=== PATIENT | female | born 1960 | race Caucasian/White ===

== ENCOUNTER → 2019-03-19 | Outpatient (CLI) | payer BC, MEDICARE ==
[2019-03-19 15:43] LABS: African American GFR (CKD) >90 (>60 ml/min/1.73 sqM); Blood Urea Nitrogen 21 mg/dL (7-17); Non-African American GFR(CKD) 82 (>60 ml/min/1.73 sqM)
== END | disposition home or self-care (01) ==
LOC: LABWHC1 14:47
PROVIDERS: ATTEND Physical Medicine & Rehabilitation
DX: N28.9 Disorder of kidney and ureter, unspecified (principal)
CPT/HCPCS: 36415; 82565; 84520

== ENCOUNTER → 2020-06-23 | Outpatient (CLI) | payer MEDICARE, BC ==
--- NOTE | 2020-06-23 14:19 | BD ---
EXAMINATION TYPE: Axial Bone Density DATE OF EXAM: 06/23/2020 COMPARISON: NONE CLINICAL HISTORY: Height: 63 IN Weight: 234 IN FRAX RISK QUESTIONS: Secondary Osteoporosis: 3. Menopause before 45: TOTAL HYST AGE 30 RISK FACTORS HISTORY OF: Surgery to Spine: SPINE FUSION L SPINE 2016 Active: YES Postmenopausal woman: TOTAL HYST AGE 30 MEDICATIONS: Thyroid Medications: YES Which medication: Levothyroxine How Lon MONTHS Additional Medications: LEVOTHYROXINE, ATORVASTATIN, Additional History: LYMPHOMA WITH CHEMO EXAM MEASUREMENTS: Bone mineral densitometry was performed using the [employer] System. PT HAD L SPINE FUSION 2015 Bone mineral density about the R hip (g/cm2): 0.863 Bone mineral density about the L hip (g/cm2): 0.847 T Score values are as follows: -----R Neck: -1.3 -----L Neck: -1.4 -----R Total: 0.3 -----L Total: 0.2 Bone mineral density BASELINE Bone mineral density about the R Wrist (g/cm2): 0.688 T Score values are as follows: -----Dist. R+U: 0.4 -----Prox. R+U: 0.1 -----Radius total: 0.2 Bone mineral density BASELINE IMPRESSION: Osteopenia (T Score between -2.5 and -1). There is slightly increased risk of fracture and the patient may be considered for treatment. Re-Screen 2-5 years. NOTE: T-SCORE=SD OF THE YOUNG ADULT MEAN.
--- NOTE | 2020-06-25 08:33 | MM ---
Reason for exam: screening (asymptomatic). Last mammogram was performed 2 years and 9 months ago. History: Patient is postmenopausal and history of other cancer. Family history of breast cancer in maternal aunt and breast cancer in maternal cousin. Physical Findings: A clinical breast exam by your physician is recommended on an annual basis and results should be correlated with mammographic findings. MG 3D Screening Mammo W/Cad Bilateral CC and MLO view(s) were taken. Prior study comparison: September 26, 2017, mammogram. February 19, 2016, mammogram. The breast tissue is almost entirely fat. No significant changes when compared with prior studies. ASSESSMENT: Benign, BI-RAD 2 RECOMMENDATION: Routine screening mammogram of both breasts in 1 year.
== END | disposition home or self-care (01) ==
LOC: RADBDWWP 07:59
PROVIDERS: ATTEND Family Medicine
DX: Z12.31 Encounter for screening mammogram for malignant neoplasm of breast (principal); Z13.820 Encounter for screening for osteoporosis; M85.80 Other specified disorders of bone density and structure, unspecified site
CPT/HCPCS: 77063; 77067; 77080

== ENCOUNTER → 2020-09-22 | Outpatient (CLI) | payer OTHER, MEDICARE, BC ==
--- NOTE | 2020-09-22 15:14 | CT ---
EXAMINATION TYPE: CT cervical spine wo con DATE OF EXAM: 09/22/2020 COMPARISON: None HISTORY: 60-year-old female M54.2, chronic neck pain TECHNIQUE: Contiguous axial scanning of the cervical spine without IV contrast. Coronal and sagittal reconstructions performed. CT DLP: 605 mGycm Automated exposure control for dose reduction was used. FINDINGS: No craniocervical junction abnormality, predental space widening, or prevertebral soft tissue swellin g. Some degenerative change at the C1 dens articulation noted. Stranding of the normal cervical lordosis with preserved alignment. Moderate to advanced disc/endplate degenerative change C4-C7 levels with disc osteophyte complex form ation. Multilevel uncovertebral joint and facet arthropathy especially mid to lower cervical spine. Left paracentral disc osteophyte complex at C4-C5 causes a mild spinal canal stenosis. There is promi nent artifact relating to the patient's shoulders at C5-C6 and C6-C7 but there may be more moderate s akbar canal stenoses at these levels secondary to disc osteophyte complexes. At C4-C5, severe left and mild right neural foraminal stenosis. At C5-C6, moderate to severe left and moderate right neuroforaminal stenosis. At C6-C7, moderate right and mild left neuroforaminal stenosis. IMPRESSION: 1. MODERATE SPONDYLOTIC CHANGE C4 THROUGH C7 LEVELS. MILD SPINAL CANAL STENOSIS SECONDARY TO DISC OST EOPHYTE COMPLEX AT C4-C5 AND POSSIBLY MORE MODERATE CANAL NARROWING AT C5-C6 AND C6-C7 THOUGH ARTIFAC T FROM THE PATIENT'S SHOULDERS LIMITS ASSESSMENT AT THESE LEVELS. 2. ADDITIONAL FACET AND UNCOVERTEBRAL JOINT ARTHROPATHY. THIS RESULTS IN VARIABLE NEURAL FORAMINAL ST ENOSES FROM C4 THROUGH C7 ABOVE, SEVERE ON THE LEFT AT C4-C5 AND MODERATE TO SEVERE ON THE LEFT AT C5-C6.
--- NOTE | 2020-09-22 15:19 | CT ---
EXAMINATION TYPE: CT thoracic spine wo con DATE OF EXAM: 09/22/2020 COMPARISON: None HISTORY: 60-year-old female with thoracic spine pain, M54.6, chronic back pain TECHNIQUE: Contiguous axial scanning of the thoracic spine without IV contrast. Coronal and sagittal reconstructions performed. CT DLP: 2179.9 mGycm Automated exposure control for dose reduction was used. FINDINGS: Accentuated mid to lower thoracic kyphosis with moderate to advanced degenerative disc disease and en dplate spondylosis particularly in the mid to lower thoracic spine. Vertebral body heights are preserved and alignment is maintained. No bony spinal canal stenosis identified. Assessment for focal disc herniation is limited on CT espec ially due to large patient body habitus. Scattered mild facet arthropathy. Variable mild neural foraminal narrowing in the upper thoracic spin e and also on both sides at T10-T11. Fatty matrix hemangioma within the T6 vertebral body. IMPRESSION: 1. MODERATE TO ADVANCED DEGENERATIVE DISC DISEASE AND ENDPLATE SPONDYLOSIS ESPECIALLY IN THE MID TO L OWER THORACIC SPINE WITH AN ACCENTUATED THORACIC KYPHOSIS. 2. SCATTERED MILD FACET ARTHROPATHY. VARIABLE MILD NEUROFORAMINAL NARROWING IN THE UPPER THORACIC SPI NE AND ALSO ON BOTH SIDES AT T10-T11. 3. NO VERTEBRAL COMPRESSION COLLAPSE OR MALALIGNMENT.
== END | disposition home or self-care (01) ==
LOC: RADCTMAIN 14:32
PROVIDERS: ATTEND Orthopaedic Surgery
DX: M48.02 Spinal stenosis, cervical region (principal); M48.04 Spinal stenosis, thoracic region; M51.34 Other intervertebral disc degeneration, thoracic region; M47.814 Spondylosis without myelopathy or radiculopathy, thoracic region; M47.812 Spondylosis without myelopathy or radiculopathy, cervical region; M40.204 Unspecified kyphosis, thoracic region; Z88.0 Allergy status to penicillin; Z88.1 Allergy status to other antibiotic agents; Z88.6 Allergy status to analgesic agent; Z88.8 Allergy status to other drugs, medicaments and biological substances; Z91.048 Other nonmedicinal substance allergy status
CPT/HCPCS: 72125; 72128

== ENCOUNTER → 2021-09-15 | Outpatient (CLI) | payer MEDICARE, BC ==
--- NOTE | 2021-09-15 10:18 | MM ---
Reason for exam: additional evaluation requested from prior study. Last mammogram was performed 1 year and 3 months ago. History: Patient is postmenopausal and has history of other cancer at age 48. Family history of breast cancer in maternal aunt at age 50 and breast cancer in maternal cousin at age 50. Physical Findings: Nurse did not find any significant physical abnormalities on exam. MG 3D Diag Mammo W/Cad PETE Bilateral CC and MLO view(s) were taken. Prior study comparison: June 23, 2020, bilateral MG 3d screening mammo w/cad. September 26, 2017, mammogram. There are scattered fibroglandular densities. There is no discrete abnormality including area of concern. These results were verbally communicated with the patient and result sheet given to the patient on 09/15/21. ASSESSMENT: Incomplete: need additional imaging evaluation, BI-RAD 0 RECOMMENDATION: Ultrasound of the left breast.
--- NOTE | 2021-09-15 10:19 | USB ---
Reason for exam: additional evaluation requested from abnormal screening. History: Patient is postmenopausal and has history of other cancer at age 48. Family history of breast cancer in maternal aunt at age 50 and breast cancer in maternal cousin at age 50. US Breast Limited LT Left limited breast ultrasound including focal area of concern, retroareolar and axilla demonstrates a 7 x 6 x 6mm oval, solid, hyperechoic lipoma at 1 o'clock, slightly smaller when compared to previous and a duct visualized at the posterior nipple. These results were verbally communicated with the patient and result sheet given to the patient on 09/15/21. ASSESSMENT: Benign, BI-RAD 2 RECOMMENDATION: Routine screening mammogram of both breasts in 1 year.
== END | disposition home or self-care (01) ==
LOC: RADMAMWWP 08:59
PROVIDERS: ATTEND Surgery
DX: N64.52 Nipple discharge (principal)
CPT/HCPCS: 77066; 76642; G0279; 77062

== ENCOUNTER → 2022-04-05 | Outpatient (CLI) | payer MEDICARE, BC ==
--- NOTE | 2022-04-05 10:21 | XR ---
EXAMINATION TYPE: XR chest 2V DATE OF EXAM: 04/05/2022 COMPARISON: 05/16/2016 TECHNIQUE: PA and lateral views submitted. HISTORY: Shortness of breath FINDINGS: The lungs are clear and there is no pneumothorax, pleural effusion, or focal pneumonia. Heart size mildly prominent. No overt failure. Biapical pleural thickening. Hypertrophic and degenerative change of the spine. IMPRESSION: 1. No acute process.
== END | disposition home or self-care (01) ==
LOC: RADXRYALE 09:54
PROVIDERS: ATTEND Family Medicine
DX: R06.02 Shortness of breath (principal)
CPT/HCPCS: 71046

== ENCOUNTER → 2023-05-09 | Outpatient (CLI) | payer MEDICARE, BC ==
--- NOTE | 2023-05-10 08:56 | MM ---
Reason for Exam: Screening (asymptomatic). Last mammogram was performed 1 year(s) and 8 month(s) ago. Patient History: Menarche at age 13. First Full-Term at age 23. Left ovary removed at age 39. Right ovary removed at age 39. Hysterectomy at age 39. Postmenopausal. Patient has history of breast feeding. Other cancer, age 48. Maternal cousin had breast cancer, age 50. Maternal aunt had breast cancer, age 50. Risk Values: Luisana 5 year model risk: 1.6%. NCI Lifetime model risk: 6.6%. Prior Study Comparison: 02/19/2016 Screening Mammogram, Unknown. 09/26/2017 Screening Mammogram, Unknown. 06/23/2020 Bilateral Screening Mammogram, [facility]. 09/15/2021 Bilateral Diagnostic Mammogram, [facility]. Tissue Density: There are scattered fibroglandular densities. Findings: Analyzed By CAD. Focal asymmetry left breast medial inferior aspect approximately 8.8 cm from the nipple measuring 7 mm which appears larger from prior. Right breast, There is no suspicious group of microcalcifications or new suspicious mass. Overall Assessment: Incomplete: need additional imaging evaluation, BI-RAD 0 Management: Diagnostic Mammogram of the left breast. Diagnostic Breast Ultrasound of the left breast. [facility] will attempt to contact patient to return for supplemental views and ultrasound if indicated. Patient should continue monthly self-breast exams. A clinical breast exam by your physician is recommended on an annual basis. This exam should not preclude additional follow-up of suspicious palpable abnormalities. Note on Luisana scores and lifetime risk: 1. A Luisana score greater than 3% is considered moderate risk. If this is the case, consider specialist referral to assess eligibility for a risk reducing agent. 2. If overall lifetime risk for the development of breast cancer is 20% or higher, the patient may qualify for future screening with alternating mammogram and breast MRI. Electronically signed and approved by: Kashif Martinez DO
== END | disposition home or self-care (01) ==
LOC: RADMAMWWP 07:59
PROVIDERS: ATTEND Family Medicine
DX: Z12.31 Encounter for screening mammogram for malignant neoplasm of breast (principal); Z78.0 Asymptomatic menopausal state; Z80.3 Family history of malignant neoplasm of breast
CPT/HCPCS: 77063; 77067

== ENCOUNTER → 2023-05-15 | Outpatient (CLI) | payer MEDICARE, BC ==
--- NOTE | 2023-05-15 14:19 | MM ---
Reason for Exam: Additional evaluation requested from abnormal screening. Last screening mammogram was performed less than 1 month ago. Patient History: Menarche at age 13. First Full-Term at age 23. Left ovary removed at age 39. Right ovary removed at age 39. Hysterectomy at age 39. Postmenopausal. Patient has history of breast feeding. Other cancer, age 48. Maternal cousin had breast cancer, age 50. Maternal aunt had breast cancer, age 50. Risk Values: Luisana 5 year model risk: 1.6%. NCI Lifetime model risk: 6.6%. Prior Study Comparison: 06/23/2020 Bilateral Screening Mammogram, [facility]. 09/15/2021 Bilateral Diagnostic Mammogram, [facility]. 05/09/2023 Bilateral MG 3D screening mammo w/cad, [facility]. Tissue Density: Left: The breast tissue is almost entirely fat. Findings: Analyzed By CAD. Persistent finding within the medial aspect of the left breast middle depth 8.7 cm from the nipple measuring 7 mm and is inferiorly on MLO view. Overall Assessment: Incomplete: need additional imaging evaluation, BI-RAD 0 Management: Diagnostic Breast Ultrasound of the left breast. Results were given to the patient verbally at the time of exam. Patient should continue monthly self-breast exams. A clinical breast exam by your physician is recommended on an annual basis. This exam should not preclude additional follow-up of suspicious palpable abnormalities. Note on Luisana scores and lifetime risk: 1. A Luisana score greater than 3% is considered moderate risk. If this is the case, consider specialist referral to assess eligibility for a risk reducing agent. 2. If overall lifetime risk for the development of breast cancer is 20% or higher, the patient may qualify for future screening with alternating mammogram and breast MRI. Electronically signed and approved by: Kashif Martinez DO
--- NOTE | 2023-05-15 14:44 | USB ---
Reason for Exam: Additional evaluation requested from abnormal screening. Patient History: Menarche at age 13. First Full-Term at age 23. Left ovary removed at age 39. Right ovary removed at age 39. Hysterectomy at age 39. Postmenopausal. Patient has history of breast feeding. Other cancer, age 48. Maternal cousin had breast cancer, age 50. Maternal aunt had breast cancer, age 50. Risk Values: Luisana 5 year model risk: 1.6%. NCI Lifetime model risk: 6.6%. Technique: Method: Targeted. Prior Study Comparison: 06/23/2020 Bilateral Screening Mammogram, [facility]. 09/15/2021 Bilateral Diagnostic Mammogram, [facility]. 05/09/2023 Bilateral MG 3D screening mammo w/cad, [facility]. Findings: The lower inner quadrant of the left breast and the retroareolar of the left breast were scanned. Technique utilized:US breast workup limited LT Image; Ultrasound imaging of: Area of concern, retroareolar region and axilla. New hypoechoic mass at 8:00 8 cm nipple measuring 5 x 6 mm there is antegrade parallel with some posterior acoustic shadowing. Overall Assessment: Suspicious, BI-RAD 4 Management: Ultrasound Core Biopsy of the left breast. A clinical breast exam by your physician is recommended on an annual basis and results should be correlated with mammographic findings. This exam should not preclude additional follow-up of suspicious palpable abnormalities. Results were given to the patient verbally at the time of exam. Electronically signed and approved by: Kashif Martinez DO
== END | disposition home or self-care (01) ==
LOC: RADMAMWWP 13:32
PROVIDERS: ATTEND Family Medicine
DX: R92.8 Other abnormal and inconclusive findings on diagnostic imaging of breast (principal); Z78.0 Asymptomatic menopausal state; Z80.3 Family history of malignant neoplasm of breast
CPT/HCPCS: 77065; 76642; G0279; 77061

== ENCOUNTER → 2023-05-25 | Day surgery (SDC) | payer MEDICARE, BC ==
--- NOTE | 2023-05-25 14:21 | MM ---
Reason for Exam: Post Procedure Mammogram. Last screening mammogram was performed less than 1 month ago. Patient History: Menarche at age 13. First Full-Term at age 23. Left ovary removed at age 39. Right ovary removed at age 39. Hysterectomy at age 39. Postmenopausal. Patient has history of breast feeding. Other cancer, age 48. Maternal cousin had breast cancer, age 50. Maternal aunt had breast cancer, age 50. Risk Values: Luisana 5 year model risk: 1.6%. NCI Lifetime model risk: 6.6%. Tissue Density: Left: There are scattered fibroglandular densities. Overall Assessment: Known biopsy proven malignancy, BI-RAD 6 Management: Post Mammogram for Jeffrey Placement Electronically signed and approved by: Kashif Martinez DO
--- NOTE | 2023-05-30 15:20 | USB ---
Risk Values: Luisana 5 year model risk: 1.6%. NCI Lifetime model risk: 6.6%. Prior Study Comparison: 09/15/2021 Bilateral Diagnostic Mammogram, [facility]. 05/09/2023 Bilateral MG 3D screening mammo w/cad, [facility]. 05/15/2023 Left MG 3D work up w/cad LT, [facility]. 05/15/2023 Left US breast workup limited , [facility]. Pathology Description: Location: 8 o'clock. Marker Left Behind. Needle Type: Mammotome Cores: 4 Skin Nicks: 1 Gauge: 13 The procedure of ultrasound guided core biopsy was explained to the patient. Benefits, alternatives, and risks were discussed. An informed consent was then obtained. The patient was placed in supine positioning for imaging and for the procedure. The overlying skin was prepped and draped in usual sterile fashion. Lidocaine was used as anesthetic into the skin and subcutaneous tissue up to area of concern in the left breast. A sundeep was made with surgical scalpel. Under ultrasound guidance, a 12-gauge vacuum assisted biopsy and 14-gauge biopsy gun gun device was used to obtain 5 core samples. Following this, a Burdett coil biopsy clip was left in lesion. The patient tolerated the procedure well without any immediate complication. The patient was kept in the radiology department for short stay after the procedure and then discharged home in stable condition. Postprocedure mammogram: The patient was transferred to mammography for physician ordered post procedure mammogram for clip placement verification. Impression: Successful, uncomplicated ultrasound guided core biopsy of area of concern in the left breast, full pathology results to follow. Pathology Results: Result: Malignant, Invasive ductal carcinoma. LEFT BREAST, 8:00, ULTRASOUND GUIDED NEEDLE CORE BIOPSY: Invasive well-differentiated ductal carcinoma (Grade 1). See Surgical Pathology Cancer Case Summary. Overall Assessment: Malignant Management: Surgical Consultation of the left breast. Electronically signed and approved by: Kashif Martinez DO
== END ==
LOC: RADUSWWP 12:37
PROVIDERS: ATTEND Surgery
DX: C50.912 Malignant neoplasm of unspecified site of left female breast (principal); Z17.0 Estrogen receptor positive status [ER+]
CPT/HCPCS: 88305; 88342; 88341; 77065; 19083; A4648

== ENCOUNTER → 2023-06-16 | Outpatient (CLI) | payer MEDICARE, BC ==
--- NOTE | 2023-06-16 14:50 | P.GSHP ---
History of Present Illness H&P Date: 06/16/23 Chief Complaint: Left breast invasive ductal carcinoma Patient is a 62-year-old white female seen in consultation for Dr. Cruz regarding a left breast invasive ductal carcinoma. She underwent a bilateral screening mammogram on which was felt to be incomplete and left breast ultrasound and diagnostic mammograms were recommended. Left breast ultrasound was performed on which revealed a 5 x 6 mm lesion in the 8 o'clock position. This was felt to be suspicious BIRADS 4. On [id number] she underwent an ultrasound-guided core biopsy which revealed an invasive ductal grade 1 ER positive RI positive HER-2/justice negative cancer. The patient does not feel any lumps masses or nodules of concern in either breast. This was found on a routine screening mammogram. She has never had any surgery on her breast. She does not have any recent nipple discharge or skin changes. She has not had any recent trauma or infection in the breast. Approximately 2 years ago she did have some left nipple discharge which was yellow in color and diagnostic workup was negative at that time. The patient is a survivor from lymphoma which she had 14 years ago. This was treated with RCHOPP chemotherapy she was stage III. She is in complete remission at this time. She is followed by Dr. Lai. She had two basal cells removed from her face. Caffeine: 2 cups decaff/day nicotine: none chocolate: weekly BCP: none Family history: Paternal aunt: Breast cancer, colon cancer Maternal cousin: Breast cancer twin sister: kidney cancer brother: leukemia Hormonal history: Menarche:13 , breast fed: yes, age at first : 23 menopause: hysterectomy complete at 39, used a hormone patch for 6 months Surgical history: Total abdominal hysterectomy Cholecystectomy Lower spinal fusion Bilateral carpal tunnel Tonsillectomy Cervical biopsy diagnosing lymphoma Medical history: HTN high cholesterol hypothyroid Social History: nicotine: none alcohol: none drugs: none - Constitutional Constitutional: Denies chills, Denies fever - EENT Eyes: denies blurred vision, denies pain Ears: deny: decreased hearing, tinnitus Ears, nose, mouth and throat: Denies headache, Denies sore throat - Breasts Breasts: bilateral: as per HPI - Cardiovascular Cardiovascular: Reports shortness of breath, Denies chest pain - Respiratory Respiratory: Denies cough, Denies 7 - Gastrointestinal Gastrointestinal: Denies abdominal pain, Denies diarrhea, Denies nausea, Denies vomiting - Genitourinary (Female) Genitourinary: Denies dysuria, Denies hematuria - Menstruation Menstruation: Reports postmenopausal - Musculoskeletal Musculoskeletal: Denies myalgias - Integumentary Integumentary: Denies pruritus, Denies rash - Neurological Neurological: Denies numbness, Denies weakness - Psychiatric Psychiatric: Denies anxiety, Denies depression - Endocrine Endocrine: Reports weight change, Denies fatigue - Hematologic/Lymphatic Comment: none - Allergic/Immunologic Allergic/Immunologic: Reports as per HPI Past Medical History Past Medical History: Cancer, GERD/Reflux, Hyperlipidemia, Musculoskeletal Disorder, Osteoarthritis (OA) Additional Past Medical History / Comment(s): HX OF BASAL CELL CANCER & LYMPHOMA WITH CHEMO 2009., BACK PAIN. History of Any Multi-Drug Resistant Organisms: None Reported Past Surgical History: Back Surgery, Cholecystectomy, Hysterectomy, Orthopedic Surgery, Tonsillectomy Additional Past Surgical History / Comment(s): 06/15/16 posterior lateral decompression fusion transforaminal lumbar interbody fusion L4-5 and L5-S1. Other surgical hx: TUMOR ON EAR, HEMMORRHOIDECTOMY, PETE CARPAL TUNNEL, Past Anesthesia/Blood Transfusion Reactions: Previous Problems w/ Anesthesia Additional Past Anesthesia/Blood Transfusion Reaction / Comment(s): AFTER HYSTERECTOMY SHE COULN'T BREATHE WHEN SHE WAS WAKING UP AND SHE BECAME VERY ANXIOUS. Past Psychological History: No Psychological Hx Reported Past Alcohol Use History: Rare Past Drug Use History: None Reported - Past Family History Brother(s) Family Medical History: Cancer Additional Family Medical History / Comment(s): PROSTATE CA Sister(s) Family Medical History: Cancer Additional Family Medical History / Comment(s): TWIN SISTER HAD KIDNEY CANCER Medications and Allergies Home Medications Medication Instructions Recorded Confirmed Type Levothyroxine Sodium [Synthroid] 75 mcg PO DAILY 05/16/23 05/16/23 History Losartan Potassium 50 mg PO DAILY 05/16/23 05/16/23 History Meloxicam [Mobic] 15 mg PO DAILY 05/16/23 05/16/23 History Rosuvastatin [Crestor] 20 mg PO DAILY 05/16/23 05/16/23 History Allergies Allergy/AdvReac Type Severity Reaction Status Date / Time Penicillins Allergy Severe Rash/Hives Verified 05/16/23 13:10 , Skin on face peeled iodine Allergy Unknown Rash/Hives Verified 05/16/23 13:10 miconazole Allergy Unknown Blisters Verified 05/16/23 13:10 [From Neosporin AF] shellfish derived [Shellfish] Allergy Unknown Hives , Verified 05/16/23 13:10 Swelling diazepam [From Valium] AdvReac Unknown Chills, Verified 05/16/23 13:10 Shaking Surgical - Exam - General no distress - Eyes normal ocular movement - ENT no hearing loss - Neck trachea midline - Respiratory normal respiratory effort, clear to auscultation - Cardiovascular Rhythm: regular Heart Sounds: normal: S1, S2 - Abdomen Abdomen: soft, non tender, no guarding, no rigid, no rebound - Integumentary normal turgor - Neurologic no disoriented, no combative - Musculoskeletal normal gait - Psychiatric oriented to time, oriented to person, oriented to place, speech is normal, memory intact Breast Exam: BRA: 42D Inspection: Bilateral grade 3 ptosis Right breast: Multi-positional exam fibrocystic changes no dominant masses or nodules of concern Right axilla: No adenopathy of concern Left breast: Multi-positional exam fibrocystic changes no dominant masses or nodules of concern no evidence of any infection or hematoma at biopsy site Left axilla: No adenopathy of concern Results Personally reviewed mammogram and ultrasound Assessment and Plan Assessment: Impression: Left breast stage IA invasive ductal carcinoma Fibrocystic breast changes Plan: Presentation of case at tumor board CC: DR. Jang
[2023-06-16 15:16] VITALS: BP 154/91; PULSE 79; RESP 18; TEMP 98.2
== END ==
LOC: WWCWWP 13:48
PROVIDERS: ATTEND Surgery
DX: N60.12 Diffuse cystic mastopathy of left breast (principal); E03.9 Hypothyroidism, unspecified; E78.00 Pure hypercholesterolemia, unspecified; I10 Essential (primary) hypertension; K21.9 Gastro-esophageal reflux disease without esophagitis; M19.90 Unspecified osteoarthritis, unspecified site; Z79.890 Hormone replacement therapy; Z85.828 Personal history of other malignant neoplasm of skin; Z88.0 Allergy status to penicillin; Z88.3 Allergy status to other anti-infective agents; Z85.72 Personal history of non-Hodgkin lymphomas; Z80.3 Family history of malignant neoplasm of breast; Z91.013 Allergy to seafood; Z88.8 Allergy status to other drugs, medicaments and biological substances; Z79.899 Other long term (current) drug therapy

== ENCOUNTER 2023-07-18 11:45 | Day surgery (SDC) | payer MEDICARE, BC ==
[2023-07-13 12:39] VITALS: BMI 42.5
--- NOTE | 2023-07-13 17:15 | P.PN ---
Subjective Progress Note Date: 07/13/23 History of Present Illness H&P Date: 07-13-23 Chief Complaint: Left breast invasive ductal carcinoma Patient is a 62-year-old white female seen in consultation for Dr. Cruz regarding a left breast invasive ductal carcinoma. She underwent a bilateral screening mammogram on which was felt to be incomplete and left breast ultrasound and diagnostic mammograms were recommended. Left breast ultrasound was performed on which revealed a 5 x 6 mm lesion in the 8 o'clock position. This was felt to be suspicious BIRADS 4. On [id number] she underwent an ultrasound-guided core biopsy which revealed an invasive ductal grade 1 ER positive MT positive HER-2/justice negative cancer. The patient does not feel any lumps masses or nodules of concern in either breast. This was found on a routine screening mammogram. She has never had any surgery on her breast. She does not have any recent nipple discharge or skin changes. She has not had any recent trauma or infection in the breast. Approximately 2 years ago she did have some left nipple discharge which was yellow in color and diagnostic workup was negative at that time. The patient is a survivor from lymphoma which she had 14 years ago. This was treated with RCHOPP chemotherapy she was stage III. She is in complete remission at this time. She is followed by Dr. Lai. She had two basal cells removed from her face. CAse presented at tumor board on 06-20-23: recommend left breast needle localization lumpectomy, with sentinel node biopsy The patient was given the option of genetic testing and at this time she does not mind doing the genetic testing but states no matter the results of that she would still want to have a lumpectomy rather than a mastectomy Caffeine: 2 cups decaff/day nicotine: none chocolate: weekly BCP: none Family history: Paternal aunt: Breast cancer, colon cancer Maternal cousin: Breast cancer twin sister: kidney cancer brother: leukemia Hormonal history: Menarche:13 , breast fed: yes, age at first : 23 menopause: hysterectomy complete at 39, used a hormone patch for 6 months Surgical history: Total abdominal hysterectomy Cholecystectomy Lower spinal fusion Bilateral carpal tunnel Tonsillectomy Cervical biopsy diagnosing lymphoma Medical history: HTN high cholesterol hypothyroid history of lymphoma followed by Dr. Lai Social History: nicotine: none alcohol: none drugs: none - Constitutional Constitutional: Denies chills, Denies fever - EENT Eyes: denies blurred vision, denies pain Ears: deny: decreased hearing, tinnitus Ears, nose, mouth and throat: Denies headache, Denies sore throat - Breasts Breasts: bilateral: as per HPI - Cardiovascular Cardiovascular: Reports shortness of breath, Denies chest pain - Respiratory Respiratory: Denies cough - Gastrointestinal Gastrointestinal: Denies abdominal pain, Denies diarrhea, Denies nausea, Denies vomiting - Genitourinary (Female) Genitourinary: Denies dysuria, Denies hematuria - Menstruation Menstruation: Reports postmenopausal - Musculoskeletal Musculoskeletal: Denies myalgias - Integumentary Integumentary: Denies pruritus, Denies rash - Neurological Neurological: Denies numbness, Denies weakness - Psychiatric Psychiatric: Denies anxiety, Denies depression - Endocrine Endocrine: Reports weight change, Denies fatigue - Hematologic/Lymphatic Comment: none - Allergic/Immunologic Allergic/Immunologic: Reports as per HPI Past Medical History Past Medical History: Cancer, GERD/Reflux, Hyperlipidemia, Musculoskeletal Disorder, Osteoarthritis (OA) Additional Past Medical History / Comment(s): HX OF BASAL CELL CANCER & LYMPHOMA WITH CHEMO 2009., BACK PAIN. History of Any Multi-Drug Resistant Organisms: None Reported Past Surgical History: Back Surgery, Cholecystectomy, Hysterectomy, Orthopedic Surgery, Tonsillectomy Additional Past Surgical History / Comment(s): 06/15/16 posterior lateral decompression fusion transforaminal lumbar interbody fusion L4-5 and L5-S1. Other surgical hx: TUMOR ON EAR, HEMMORRHOIDECTOMY, PETE CARPAL TUNNEL, Past Anesthesia/Blood Transfusion Reactions: Previous Problems w/ Anesthesia Additional Past Anesthesia/Blood Transfusion Reaction / Comment(s): AFTER HYSTERECTOMY SHE COULN'T BREATHE WHEN SHE WAS WAKING UP AND SHE BECAME VERY ANXIOUS. Past Psychological History: No Psychological Hx Reported Past Alcohol Use History: Rare Past Drug Use History: None Reported - Past Family History Brother(s) Family Medical History: Cancer Additional Family Medical History / Comment(s): PROSTATE CA Sister(s) Family Medical History: Cancer Additional Family Medical History / Comment(s): TWIN SISTER HAD KIDNEY CANCER Medications and Allergies Home Medications Medication Instructions Recorded Confirmed Type Levothyroxine Sodium [Synthroid] 75 mcg PO DAILY 05/16/23 05/16/23 History Losartan Potassium 50 mg PO DAILY 05/16/23 05/16/23 History Meloxicam [Mobic] 15 mg PO DAILY 05/16/23 05/16/23 History Rosuvastatin [Crestor] 20 mg PO DAILY 05/16/23 05/16/23 History Allergies Allergy/AdvReac Type Severity Reaction Status Date / Time Penicillins Allergy Severe Rash/Hives Verified 05/16/23 13:10 , Skin on face peeled iodine Allergy Unknown Rash/Hives Verified 05/16/23 13:10 miconazole Allergy Unknown Blisters Verified 05/16/23 13:10 [From Neosporin AF] shellfish derived [Shellfish] Allergy Unknown Hives , Verified 05/16/23 13:10 Swelling diazepam [From Valium] AdvReac Unknown Chills, Verified 05/16/23 13:10 Shaking Objective - Vital Signs Vital signs: Intake & Output 07/12/23 07/13/23 07/13/23 18:59 06:59 18:59 Weight 108.862 kg - Constitutional General appearance: Present: cooperative - EENT Eyes: Present: EOMI ENT: Present: hearing grossly normal - Neck Neck: Present: normal ROM - Respiratory Respiratory: bilateral: CTA - Cardiovascular Heart sounds: normal: S1, S2 - Integumentary Integumentary: Present: normal turgor - Musculoskeletal Musculoskeletal: Present: gait normal - Psychiatric Psychiatric: Present: A&O x's 3, appropriate affect, intact judgment & insight - Additional findings Additional findings: Breast Exam: BRA: 42D Inspection: Bilateral grade 3 ptosis Right breast: Multi-positional exam fibrocystic changes no dominant masses or nodules of concern Right axilla: No adenopathy of concern Left breast: Multi-positional exam fibrocystic changes no dominant masses or nodules of concern no evidence of any infection or hematoma at biopsy site Left axilla: No adenopathy of concern Assessment and Plan Assessment: Impression: Left breast stage IA invasive ductal carcinoma Fibrocystic breast changes Plan: Presentation of case at tumor board n 11-14-23 Left breast needle localization and lumpectomy, left sentinel node injection, left sentinel node biopsy, possible left axillary node dissection, possible left onco- plastic tissue transfer This and benefits of the procedure were discussed with the patient. Risks include but are not limited to bleeding, infection, reaction to the anesthetic. She understands and wishes to proceed. Additionally the possibility of lymphedema, decreased sensation to the inner arm, possible injury to the thoracodorsal or long thoracic nerves were discussed. The possibility of injecting methylene blue and the fact that there could cause some tissue necrosis was discussed. The patient understands and wishes to proceed. CC: DR. Jang
[~2023-07-18 11:45] MED LIST: HEPARIN SODIUM,PORCINE/PF 5,000 UNIT/0.5 ML SYRINGE SQ PRN
[2023-07-18] MEDS ORDERED: droPERidol 5 MG/2 ML VIAL IVP ONE (12:00)
[2023-07-18] MEDS ORDERED: LACTATED RINGERS 1,000 ML IV SCH (12:00)
[2023-07-18] MEDS ORDERED: LIDOCAINE 1% (10MG/ML) FOR IV START INTRADERMA PRN (12:00)
[2023-07-18] MEDS ORDERED: DEXAMETHASONE SOD PHOSPHATE 4 MG/ML 1 ML VIAL IV ONE (12:00)
[2023-07-18] MEDS ORDERED: ONDANSETRON 4 MG/2 ML VIAL IVP ONE (12:00)
[2023-07-18] MEDS ORDERED: ALPRAZolam 0.5 MG TAB ONE (12:23)
[2023-07-18] MEDS ORDERED: ALPRAZolam 0.5 MG TAB PO ONE (12:27)
[2023-07-18] MEDS ORDERED: LIDOCAINE 1% INJ 10MG/ML (20 ML MDV) SQ ONE (13:12)
--- NOTE | 2023-07-18 14:02 | P.NAPBC ---
NAPBC Queries - NAPBC Queries Was patient's case review presented at [facility] tumor board? If no, comment.: Yes Was patient's pathology reviewed at [facility]? If no, comment.: Yes Was breast conservation surgery offered? If no, comment.: Yes Was sentinel node biopsy offered? If no, comment.: Yes Was diagnosis confirmed by percutaneous core biopsy? If no, comment.: Yes Is patient mastectomy patient?: No Was a preop referral to reconstructive surgeon offered?: No Clinical Stage: stage 1 left breast invasive ductal cancer [id number]
[2023-07-18] MEDS ORDERED: SUCCINYLCHOLINE CHLORIDE 200 MG/10 ML VIAL IV ONE (14:14)
[2023-07-18] MEDS ORDERED: ePHEDrine 50 MG/ML 1 ML VIAL ONE (14:14)
[2023-07-18] MEDS ORDERED: fentaNYL (PF) 50 MCG/ML 2 ML AMP ONE (14:14)
[2023-07-18] MEDS ORDERED: LIDOCAINE 1% INJ 10MG/ML (20 ML MDV) ONE (14:14)
[2023-07-18] MEDS ORDERED: diphenhydrAMINE 50 MG/ML 1 ML VIAL ONE (14:14)
[2023-07-18] MEDS ORDERED: PROPOFOL 10 MG/ML 20 ML VIAL IV ONE (14:14)
[2023-07-18] MEDS ORDERED: METHYLENE BLUE 50 MG/10 ML AMPUL INJ ONE (14:44)
--- NOTE | 2023-07-18 16:08 | P.OP ---
Date of Procedure: 07/18/23 Preoperative Diagnosis: Invasive ductal carcinoma left breast Postoperative Diagnosis: Same Procedure(s) Performed: Needle localization excisional lumpectomy, lymphatic mapping, sentinel node biopsy Anesthesia: NAYE Surgeon: Lorie Johns Estimated Blood Loss (ml): 10 IV fluids (ml): 700 Pathology: other ([place] node left axilla, breast tissue) Condition: stable Disposition: same day Indications for Procedure: Biopsy-proven left breast invasive ductal carcinoma Operative Findings: Dense breast tissue Description of Procedure: The patient was seen first in the radiology department. Localization of the area of concern was performed in the left breast. Periareolar radioactive tracer was injected. The patient was brought up to the operative suite. Following induction of anesthesia the neoprobe was used to interrogate the axilla. Minimal radioactivity was identified. Therefore 5 mL of half drink methylene blue was injected into the periareolar area. The breast was massaged. The left breast and axilla were then prepped and draped in a sterile fashion. The area of the axilla was approached initially. An incision was made in. Down into the axillary tissue. Using the neoprobe there was noted to be an area of increased activity deep in the axilla. Additionally 2 blue lymph nodes were identified. One of these nodes was radioactive. This area was excised using the Harmonic scalpel. After assured that hemostasis was attained the wound was well irrigated. The 10 second count on the first lymph node was 562, the background count was 17. No other blue or radioactive lymph nodes were identified. The deep tissues were closed using 3-0 Vicryl suture. This was followed by closure of the subcutaneous tissue with 3-0 Vicryl suture. The skin was closed with 4-0 subcuticular Monocryl. The area of the breast was approached. Incision was made and carried to the shaft of the needle. This was grasped with an Allis clamp. The surrounding tissue was excised. The area of excision was approximately 5 cm x 3 cm. Additional tissue was taken inferiorly. The specimens were painted for orientation. Radiograph of specimen revealed the area of concern as well as the clip were removed. Anteriorly dissection was directly under the skin and posterior dissection was on to the muscle. After we were assured that hemostasis was attained titanium clips were placed. The tissues were brought together using 3- 0 Vicryl suture. 3-0 Vicryl subcutaneous suture was placed. 4-0 Monocryl subcuticular suture was placed. Surgical glue was placed. The patient tolerated the procedure in stable condition. All instrument and sponge counts were correct at the end of the case.
[2023-07-18 16:31] VITALS: TEMP 97
[2023-07-18] MEDS: fentaNYL (PF) 50 MCG/ML 2 ML AMP IV PRN ×2 (16:46→16:59)
[2023-07-18] MEDS ORDERED: HYDROcodone/APAP 5-325MG 1 EACH TAB ONE (17:11)
[2023-07-18] MEDS ORDERED: LACTATED RINGERS 1,000 ML IV ONE (17:20)
[2023-07-18 17:21] VITALS: RESP 18
[2023-07-18] MEDS ORDERED: HYDROcodone/APAP 5-325MG 1 EACH TAB PO ONE (17:27)
[2023-07-18 17:44] VITALS: BP 123/68; PULSE 81
--- NOTE | 2023-07-19 07:55 | NM ---
EXAMINATION TYPE: NM sentinel node injection DATE OF EXAM: 07/18/2023 COMPARISON: NONE INDICATION: Abnormal mammogram. Informed consent was obtained. A timeout was performed. The area around the left nipple was cleansed with alcohol. In a single dose, a total of 485 uCi Marlin hnetium 99m Tilmanocept was injected. The patient tolerated the procedure very well. IMPRESSION: 1. Successful injection for sentinel node evaluation.
--- NOTE | 2023-07-28 10:17 | MM ---
Pathology Description: The needle localization procedure with wire placement for surgical excision was explained to the patient. Benefits, alternatives, and risks were discussed. An informed consent was then obtained. A timeout was performed. The overlying skin was prepped in usual sterile fashion. Lidocaine was used as anesthetic into the skin and subcutaneous tissue up to the level of area of concern. A 9 cm needle was used. It was placed using a medial left approach under mammographic guidance. Subsequent 90 degrees mammogram show the needle to be in satisfactory position relative to the targeted area. The wire was placed and the needle was withdrawn. The wire was fixed to patient's skin. Images were reviewed with the surgeon. The patient tolerated the procedure well without any immediate complication. The patient was kept in the radiology department for short stay after the procedure and then taken to surgery for surgical excision. Specimen: Biopsy marker and wire are identified in specimen mammogram. Impression: 1. Successful needle localization with wire placement and surgical excision of biopsy marker. Pathology Results: Result: Malignant, Invasive ductal carcinoma. A. LEFT BREAST, LUMPECTOMY: Invasive well differentiated ductal carcinoma, Grade 1 (see surgical pathology cancer case summary and comment). 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 All margins negative for in situ or invasive carcinoma. B. LEFT SENTINEL LYMPH NODE, DISSECTION: One sentinel lymph node positive for focus of macrometastatic carcinoma (see comment for confirmatory immunostain details). Focus of metastatic carcinoma measures slightly greater than 2 mm. C. BLUE LEFT LYMPH NODE, DISSECTION: One lymph node, negative for metastatic carcinoma. D. NEW INFERIOR MARGIN, EXCISION: Benign breast tissue and new inferior margin. Overall Assessment: Malignant Management: Surgical Consultation of the left breast. Electronically signed and approved by: Octaviano Garza D.O. Radiologis
== END 2023-07-18 18:05 | disposition home or self-care (01) ==
LOC: OR 11:45
PROVIDERS: ATTEND Surgery
DX: C50.912 Malignant neoplasm of unspecified site of left female breast (principal); Z17.0 Estrogen receptor positive status [ER+]; Z51.11 Encounter for antineoplastic chemotherapy; N60.19 Diffuse cystic mastopathy of unspecified breast; E03.9 Hypothyroidism, unspecified; E78.00 Pure hypercholesterolemia, unspecified; I10 Essential (primary) hypertension; K21.9 Gastro-esophageal reflux disease without esophagitis; M19.90 Unspecified osteoarthritis, unspecified site; Z79.890 Hormone replacement therapy; Z79.1 Long term (current) use of non-steroidal anti-inflammatories (NSAID); Z80.3 Family history of malignant neoplasm of breast; Z85.72 Personal history of non-Hodgkin lymphomas; Z85.828 Personal history of other malignant neoplasm of skin; Z88.0 Allergy status to penicillin; Z88.3 Allergy status to other anti-infective agents; Z79.899 Other long term (current) drug therapy
CPT/HCPCS: 19301; 38525; 38900; 88305; 88342; 88307; 88341; 76098; 19281; 38792; C1819; A9520; J0330; J1200; J1100; J0690; J2405; J2001; J3010; J2704; Q9968; J1644

== ENCOUNTER → 2023-07-27 | Outpatient (CLI) | payer MEDICARE, BC ==
--- NOTE | 2023-07-27 13:25 | P.PN ---
Progress Note - Text Progress Note Date: 07/27/23 Thuy is a 62 year old female sataus post left breast lumpectomy and SNB on 07-18-23. The margins were all (-), the tumor was 8 mm. Two nodes were removed and 1 had macroscopic disease. She tolerated the procedure without difficulty. Examination: Lungs: Clear Heart: Regular rate and rhythm Incision: Axilla and breast clean and dry no evidence of infection no evidence of hematoma or seroma Impression: Patient doing well postoperatively Plan: Follow-up medical oncology Follow-up radiation oncology Follow-up. 4 months I have given the patient a copy of her pathology report. We have discussed the results of the pathology report. And answered all questions. CC: DR. Estrada
[2023-07-27 13:27] VITALS: BP 125/77; PULSE 73; RESP 18; TEMP 98.3
== END ==
LOC: WWCWWP 12:44
PROVIDERS: ATTEND Surgery
DX: N63.20 Unspecified lump in the left breast, unspecified quadrant (principal); Z85.3 Personal history of malignant neoplasm of breast; Z88.0 Allergy status to penicillin; Z88.8 Allergy status to other drugs, medicaments and biological substances; Z91.030 Bee allergy status; Z88.5 Allergy status to narcotic agent

== ENCOUNTER → 2023-12-01 | Outpatient (CLI) | payer MEDICARE, BC ==
--- NOTE | 2023-12-01 12:20 | P.PN ---
Subjective Progress Note Date: 12/01/23 Principal diagnosis: left breast invasive ductal cancer 2022 History of Present Illness H&P Date: 12-01-23 Chief Complaint: Left breast invasive ductal carcinoma [id number]+1 Patient is a 62-year-old white female seen in consultation for Dr. Cruz regarding a left breast invasive ductal carcinoma. She underwent a bilateral screening mammogram on which was felt to be incomplete and le ft breast ultrasound and diagnostic mammograms were recommended. Left breast ultrasound was performed on which revealed a 5 x 6 mm lesion in the 8 o'clock position. This was felt to be suspicious BIRADS 4. On [id number] she underwent an ultrasound-guided core biopsy which revealed an invasive ductal grade 1 ER positive MS positive HER-2/justice negative cancer. The patient does not feel any lumps masses or nodules of concern in either breast. This was found on a routine screening mammogram. She has never had any surgery on her breast. She does not have any recent nipple discharge or skin changes. She has not had any recent trauma or infection in the breast. Approximately 2 years ago she did have some left nipple discharge which was yellow in color and diagnostic workup was negative at that time. The patient is a survivor from lymphoma which she had 14 years ago. This was treated with RCHOPP chemotherapy she was stage III. She is in complete remission at this time. She is followed by Dr. Lai. She had two basal cells removed from her face. case presented at tumor board 06-20-23 genetic testing : VUS left breast lumpectomy and SNB on 07-18-23 all margins(-), two nodes removed, 1 had macroscopic disease note medical oncology 08-14-23 reviewed planned to have adjuvant chemotherapy; just finished 5th course; note radiation oncology reviewed 09-04-23; to be done after the chemotherapy She is not complaining of any new lumps masses or nodules of concern Caffeine: 2 cups decaff/day nicotine: none chocolate: weekly BCP: none Family history: Paternal aunt: Breast cancer, colon cancer Maternal cousin: Breast cancer twin sister: kidney cancer brother: leukemia Hormonal history: Menarche:13 , breast fed: yes, age at first : 23 menopause: hysterectomy complete at 39, used a hormone patch for 6 months Surgical history: Total abdominal hysterectomy Cholecystectomy Lower spinal fusion Bilateral carpal tunnel Tonsillectomy Cervical biopsy diagnosing lymphoma Medical history: HTN high cholesterol hypothyroid Social History: nicotine: none alcohol: none drugs: none - Constitutional Constitutional: Denies chills, Denies fever - EENT Eyes: denies blurred vision, denies pain Ears: deny: decreased hearing, tinnitus Ears, nose, mouth and throat: Denies headache, Denies sore throat - Breasts Breasts: bilateral: as per HPI - Cardiovascular Cardiovascular: Reports shortness of breath, Denies chest pain - Respiratory Respiratory: Denies cough - Gastrointestinal Gastrointestinal: Denies abdominal pain, Denies diarrhea, Denies nausea, Denies vomiting - Genitourinary (Female) Genitourinary: Denies dysuria, Denies hematuria - Menstruation Menstruation: Reports postmenopausal - Musculoskeletal Musculoskeletal: Denies myalgias - Integumentary Integumentary: Denies pruritus, Denies rash - Neurological Neurological: Denies numbness, Denies weakness - Psychiatric Psychiatric: Denies anxiety, Denies depression - Endocrine Endocrine: Reports weight change, Denies fatigue - Hematologic/Lymphatic Comment: none - Allergic/Immunologic Allergic/Immunologic: Reports as per HPI Past Medical History Past Medical History: Cancer, GERD/Reflux, Hyperlipidemia, Musculoskeletal Disorder, Osteoarthritis (OA) Additional Past Medical History / Comment(s): HX OF BASAL CELL CANCER & LYMPHOMA WITH CHEMO 2009., BACK PAIN. History of Any Multi-Drug Resistant Organisms: None Reported Past Surgical History: Back Surgery, Cholecystectomy, Hysterectomy, Orthopedic Surgery, Tonsillectomy Additional Past Surgical History / Comment(s): 06/15/16 posterior lateral decompression fusion transforaminal lumbar interbody fusion L4-5 and L5-S1. Other surgical hx: TUMOR ON EAR, HEMMORRHOIDECTOMY, PETE CARPAL TUNNEL, Past Anesthesia/Blood Transfusion Reactions: Previous Problems w/ Anesthesia Additional Past Anesthesia/Blood Transfusion Reaction / Comment(s): AFTER HYSTERECTOMY SHE COULN'T BREATHE WHEN SHE WAS WAKING UP AND SHE BECAME VERY ANXIOUS. Past Psychological History: No Psychological Hx Reported Past Alcohol Use History: Rare Past Drug Use History: None Reported - Past Family History Brother(s) Family Medical History: Cancer Additional Family Medical History / Comment(s): PROSTATE CA Sister(s) Family Medical History: Cancer Additional Family Medical History / Comment(s): TWIN SISTER HAD KIDNEY CANCER Medications and Allergies Home Medications Medication Instructions Recorded Confirmed Type Levothyroxine Sodium [Synthroid] 75 mcg PO DAILY 05/16/23 05/16/23 History Losartan Potassium 50 mg PO DAILY 05/16/23 05/16/23 History Meloxicam [Mobic] 15 mg PO DAILY 05/16/23 05/16/23 History Rosuvastatin [Crestor] 20 mg PO DAILY 05/16/23 05/16/23 History Allergies Allergy/AdvReac Type Severity Reaction Status Date / Time Penicillins Allergy Severe Rash/Hives Verified 05/16/23 13:10 , Skin on face peeled iodine Allergy Unknown Rash/Hives Verified 05/16/23 13:10 miconazole Allergy Unknown Blisters Verified 05/16/23 13:10 [From Neosporin AF] shellfish derived [Shellfish] Allergy Unknown Hives , Verified 05/16/23 13:10 Swelling diazepam [From Valium] AdvReac Unknown Chills, Verified 05/16/23 13:10 Shaking Objective - Constitutional General appearance: Present: cooperative - EENT Eyes: Present: EOMI ENT: Present: hearing grossly normal - Neck Neck: Present: normal ROM - Respiratory Respiratory: bilateral: CTA - Cardiovascular Heart sounds: normal: S1, S2 - Integumentary Integumentary: Present: normal turgor - Musculoskeletal Musculoskeletal: Present: gait normal - Psychiatric Psychiatric: Present: A&O x's 3, appropriate affect, intact judgment & insight - Additional findings Additional findings: Breast Exam: BRA: 42D Inspection: Bilateral grade 3 ptosis Right breast: Multi-positional exam fibrocystic changes no dominant masses or nodules of concern Right axilla: No adenopathy of concern Left breast: Multi-positional exam fibrocystic changes no dominant masses or nodules of concern, post surgical changes Left axilla: No adenopathy of concern Assessment and Plan Assessment: Impression: Left breast stage IA invasive ductal carcinoma Fibrocystic breast changes completing chemotherapy will follow up with radiation therapy Plan: follow up in 4 months mammogram in May 2024 with appointment at that time follow up medical Oncology Follow radiation oncology Follow-up here sooner any questions or concerns CC: DR. Jang
[2023-12-01 12:45] VITALS: BP 145/81; PULSE 72; RESP 17; TEMP 97.8
== END ==
LOC: WWCWWP 11:56
PROVIDERS: ATTEND Surgery
DX: Z12.31 Encounter for screening mammogram for malignant neoplasm of breast (principal); C50.912 Malignant neoplasm of unspecified site of left female breast; N60.11 Diffuse cystic mastopathy of right breast; N60.12 Diffuse cystic mastopathy of left breast; R92.8 Other abnormal and inconclusive findings on diagnostic imaging of breast; Z17.0 Estrogen receptor positive status [ER+]; Z80.3 Family history of malignant neoplasm of breast; Z88.0 Allergy status to penicillin; Z88.8 Allergy status to other drugs, medicaments and biological substances; Z91.013 Allergy to seafood; Z85.72 Personal history of non-Hodgkin lymphomas; Z88.3 Allergy status to other anti-infective agents; Z91.041 Radiographic dye allergy status; Z88.5 Allergy status to narcotic agent

== ENCOUNTER → 2024-05-13 | Outpatient (CLI) | payer MEDICARE, BC ==
--- NOTE | 2024-05-13 14:14 | MM ---
Reason for Exam: Follow-up at short interval from prior study. Last screening mammogram was performed 12 month(s) ago. Patient History: Menarche at age 13. First Full-Term at age 23. Left ovary removed at age 39. Right ovary removed at age 39. Hysterectomy at age 39. Postmenopausal. Patient has history of breast feeding. Other cancer, age 48. Breast cancer, left, age 62. Breast cancer, left, age 62. 07/18/2023, Lumpectomy on the Left side. 07/18/2023, Malignant MG pre op needle loc LT on the left side. 05/25/2023, Malignant US biopsy breast VAD LT on the left side. Maternal cousin had breast cancer, age 50. Maternal aunt had breast cancer, age 50. Tissue Density: There are scattered areas of fibroglandular density. Findings: Analyzed By CAD. Stopped changes of left-sided lumpectomy and radiation therapy. No evidence for recurrent mass or microcalcifications. No mass within the right breast. Overall Assessment: Benign, BI-RAD 2 Management: Diagnostic Mammogram of both breasts in 1 year. . Results were given to the patient verbally at the time of exam. Patient should continue monthly self-breast exams. A clinical breast exam by your physician is recommended on an annual basis. This exam should not preclude additional follow-up of suspicious palpable abnormalities. Note on Luisana scores and lifetime risk: 1. A Luisana score greater than 3% is considered moderate risk. If this is the case, consider specialist referral to assess eligibility for a risk reducing agent. 2. If overall lifetime risk for the development of breast cancer is 20% or higher, the patient may qualify for future screening with alternating mammogram and breast MRI. [facility], , 05/13/2024 2:10 PM. Electronically signed and approved by: Francisco Ochoa M.D. Radiologis
== END | disposition home or self-care (01) ==
LOC: RADMAMWWP 13:32
PROVIDERS: ATTEND Surgery
DX: Z85.3 Personal history of malignant neoplasm of breast
CPT/HCPCS: 77062; 77066

== ENCOUNTER → 2024-05-17 | Outpatient (CLI) | payer MEDICARE, BC ==
--- NOTE | 2024-05-17 11:06 | P.PN ---
Subjective Progress Note Date: 05/17/24 05-16-24 Principal diagnosis: left breast invasive ductal cancer 2022 History of Present Illness H&P Date: 05-16-24 Chief Complaint: Left breast invasive ductal carcinoma [id number]+1 Patient is a 63-year-old white female seen initially in consultation for Dr. Cruz regarding a left breast invasive ductal carcinoma. She underwent a bilateral screening mammogram on which was felt to be incomplete and left breast ultrasound and diagnostic mammograms were recommended. Left breast ultrasound was performed on which revealed a 5 x 6 mm lesion in the 8 o'clock position. This was felt to be suspicious BIRADS 4. On [id number] she underwent an ultrasound-guided core biopsy which revealed an invasive ductal grade 1 ER positive [place] positive HER-2/justice negative cancer. The patient does not feel any lumps masses or nodules of concern in either breast. This was found on a routine screening mammogram. She had never had any surgery on her breast. She did not have any recent nipple discharge or skin changes. She had not had any recent trauma or infection in the breast. Approximately 2 years prior she did have some left nipple discharge which was yellow in color and diagnostic workup was negative at that time. The patient is a survivor from lymphoma which she had 15 years ago. This was treated with RCHOPP chemotherapy she was stage III. She is in complete remission at this time. She is followed by Dr. Lai. She had two basal cells removed from her face. case presented at tumor board 06-20-23 genetic testing : VUS left breast lumpectomy and SNB on 07-18-23 all margins(-), two nodes removed, 1 had macroscopic disease note medical oncology 12-13-23 adjuvant chemotherapy note radiation oncology reviewed 12-27-23; com[leted radiation on January 2024 Bilateral mammogram 05-13-2024 BI-RADS 2 The patient does not feel any new lumps masses or nodules of concern. She was taking hormone Annestrazole took it for 80 days and then stopped, therapy but had joint pain and palpations and stopped the medication Caffeine: 2 cups decaff/day nicotine: none chocolate: weekly BCP: none Family history: Paternal aunt: Breast cancer, colon cancer Maternal cousin: Breast cancer twin sister: kidney cancer brother: leukemia Hormonal history: Menarche:13 , breast fed: yes, age at first : 23 menopause: hysterectomy complete at 39, used a hormone patch for 6 months Surgical history: Total abdominal hysterectomy Cholecystectomy Lower spinal fusion Bilateral carpal tunnel Tonsillectomy Cervical biopsy diagnosing lymphoma Medical history: HTN high cholesterol hypothyroid Social History: nicotine: none alcohol: none drugs: none - Constitutional Constitutional: Denies chills, Denies fever - EENT Eyes: denies blurred vision, denies pain Ears: deny: decreased hearing, tinnitus Ears, nose, mouth and throat: Denies headache, Denies sore throat - Breasts Breasts: bilateral: as per HPI - Cardiovascular Cardiovascular: Reports shortness of breath, Denies chest pain - Respiratory Respiratory: Denies cough - Gastrointestinal Gastrointestinal: Denies abdominal pain, Denies diarrhea, Denies nausea, Denies vomiting - Genitourinary (Female) Genitourinary: Denies dysuria, Denies hematuria - Menstruation Menstruation: Reports postmenopausal - Musculoskeletal Musculoskeletal: Denies myalgias - Integumentary Integumentary: Denies pruritus, Denies rash - Neurological Neurological: Denies numbness, Denies weakness - Psychiatric Psychiatric: Denies anxiety, Denies depression - Endocrine Endocrine: Reports weight change, Denies fatigue - Hematologic/Lymphatic Comment: none - Allergic/Immunologic Allergic/Immunologic: Reports as per HPI Past Medical History Past Medical History: Cancer, GERD/Reflux, Hyperlipidemia, Musculoskeletal Disorder, Osteoarthritis (OA) Additional Past Medical History / Comment(s): HX OF BASAL CELL CANCER & LYMPHOMA WITH CHEMO 2009., BACK PAIN. History of Any Multi-Drug Resistant Organisms: None Reported Past Surgical History: Back Surgery, Cholecystectomy, Hysterectomy, Orthopedic Surgery, Tonsillectomy Additional Past Surgical History / Comment(s): 06/15/16 posterior lateral decompression fusion transforaminal lumbar interbody fusion L4-5 and L5-S1. Other surgical hx: TUMOR ON EAR, HEMMORRHOIDECTOMY, PETE CARPAL TUNNEL, Past Anesthesia/Blood Transfusion Reactions: Previous Problems w/ Anesthesia Additional Past Anesthesia/Blood Transfusion Reaction / Comment(s): AFTER HYSTERECTOMY SHE COULN'T BREATHE WHEN SHE WAS WAKING UP AND SHE BECAME VERY ANXIOUS. Past Psychological History: No Psychological Hx Reported Past Alcohol Use History: Rare Past Drug Use History: None Reported - Past Family History Brother(s) Family Medical History: Cancer Additional Family Medical History / Comment(s): PROSTATE CA Sister(s) Family Medical History: Cancer Additional Family Medical History / Comment(s): TWIN SISTER HAD KIDNEY CANCER Medications and Allergies Home Medications Medication Instructions Recorded Confirmed Type Levothyroxine Sodium [Synthroid] 75 mcg PO DAILY 05/16/23 05/16/23 History Losartan Potassium 50 mg PO DAILY 05/16/23 05/16/23 History Meloxicam [Mobic] 15 mg PO DAILY 05/16/23 05/16/23 History Rosuvastatin [Crestor] 20 mg PO DAILY 05/16/23 05/16/23 History Allergies Allergy/AdvReac Type Severity Reaction Status Date / Time Penicillins Allergy Severe Rash/Hives Verified 05/16/23 13:10 , Skin on face peeled iodine Allergy Unknown Rash/Hives Verified 05/16/23 13:10 miconazole Allergy Unknown Blisters Verified 05/16/23 13:10 [From Neosporin AF] shellfish derived [Shellfish] Allergy Unknown Hives , Verified 05/16/23 13:10 Swelling diazepam [From Valium] AdvReac Unknown Chills, Verified 05/16/23 13:10 Shaking Objective - Constitutional General appearance: Present: cooperative - EENT Eyes: Present: EOMI ENT: Present: hearing grossly normal - Neck Neck: Present: normal ROM - Respiratory Respiratory: bilateral: CTA - Cardiovascular Heart sounds: normal: S1, S2 - Integumentary Integumentary: Present: normal turgor - Musculoskeletal Musculoskeletal: Present: gait normal - Psychiatric Psychiatric: Present: A&O x's 3, appropriate affect, intact judgment & insight - Additional findings Additional findings: Breast Exam: BRA: 42D Inspection: Bilateral grade 3 ptosis Right breast: Multi-positional exam fibrocystic changes no dominant masses or nodules of concern Right axilla: No adenopathy of concern Left breast: Multi-positional exam fibrocystic changes no dominant masses or nodules of concern, post surgical and radiation changes Left axilla: No adenopathy of concern fungal infection under the left breast Assessment and Plan Assessment: Impression: Left breast stage IA invasive ductal carcinoma Fibrocystic breast changes mammogram 05-13-24 BIRAD 2 repeat 1 year fungal infection under the left breast uses lotrimin spray and this works well for her Plan: follow up in 6 months mammogram in May 2025 with appointment at that time follow up medical Oncology Follow radiation oncology Follow-up here sooner any questions or concerns CC: DR. Jang
[2024-05-17 11:17] VITALS: BP 166/96; PULSE 77; RESP 17; TEMP 97.7
== END ==
LOC: WWCWWP 08:59
PROVIDERS: ATTEND Surgery

== ENCOUNTER → 2024-11-28 | Outpatient (CLI) | payer MEDICARE, BC ==
[2024-11-28 15:06] VITALS: BP 144/83; PULSE 84; RESP 17; TEMP 97.7
--- NOTE | 2024-11-28 15:18 | P.PN ---
Subjective Progress Note Date: 11/28/24 11-28-24 Principal diagnosis: left breast invasive ductal cancer 2022 History of Present Illness H&P Date: 11-28-24 Chief Complaint: Left breast invasive ductal carcinoma [id number]- Patient is a 63-year-old white female seen initially in consultation for Dr. Cruz regarding a left breast invasive ductal carcinoma. She underwent a bilateral screening mammogram on which was felt to be incomplete and left breast ultrasound and diagnostic mammograms were recommended. Left breast ultrasound was performed on which revealed a 5 x 6 mm lesion in the 8 o'clock position. This was felt to be suspicious BIRADS 4. On [id number] she underwent an ultrasound-guided core biopsy which revealed an invasive ductal grade 1 ER positive [place] positive HER-2/justcie negative cancer. The patient does not feel any lumps masses or nodules of concern in either breast. This was found on a routine screening mammogram. She had never had any surgery on her breast. She did not have any recent nipple discharge or skin changes. She had not had any recent trauma or infection in the breast. Approximately 2 years prior she did have some left nipple discharge which was yellow in color and diagnostic workup was negative at that time. The patient is a survivor from lymphoma which she had 15 years ago. This was treated with RCHOPx6 chemotherapy she was stage III, 2007. She is in complete remission at this time. She is followed by Dr. Lai. She had two basal cells removed from her face. case presented at tumor board 06-20-23 genetic testing : VUS left breast lumpectomy and SNB on 07-18-23 all margins(-), two nodes removed, 1 had macroscopic disease note medical oncology 12-13-23 adjuvant chemotherapy note radiation oncology reviewed 09-04-24; completed radiation on January 2024 Bilateral mammogram 05-13-2024 BI-RADS 2 The patient does not feel any new lumps masses or nodules of concern. She was taking hormone Anastrazole took it for 80 days and then stopped, therapy but had joint pain and palpations and stopped the medication; she is now on exmestane she is tolerating this better She was seen by physical therapy for lymphedema for her left arm and breast and had decreased swelling Caffeine: 2 cups decaff/day nicotine: none chocolate: weekly BCP: none Family history: Paternal aunt: Breast cancer, colon cancer Maternal cousin: Breast cancer twin sister: kidney cancer brother: leukemia Hormonal history: Menarche:13 , breast fed: yes, age at first : 23 menopause: hysterectomy complete at 39, used a hormone patch for 6 months Surgical history: Total abdominal hysterectomy Cholecystectomy Lower spinal fusion Bilateral carpal tunnel Tonsillectomy Cervical biopsy diagnosing lymphoma Medical history: HTN high cholesterol hypothyroid Social History: nicotine: none alcohol: none drugs: none - Constitutional Constitutional: Denies chills, Denies fever - EENT Eyes: denies blurred vision, denies pain Ears: deny: decreased hearing, tinnitus Ears, nose, mouth and throat: Denies headache, Denies sore throat - Breasts Breasts: bilateral: as per HPI - Cardiovascular Cardiovascular: Reports shortness of breath, Denies chest pain - Respiratory Respiratory: Denies cough - Gastrointestinal Gastrointestinal: Denies abdominal pain, Denies diarrhea, Denies nausea, Denies vomiting - Genitourinary (Female) Genitourinary: Denies dysuria, Denies hematuria - Menstruation Menstruation: Reports postmenopausal - Musculoskeletal Musculoskeletal: Denies myalgias - Integumentary Integumentary: Denies pruritus, Denies rash - Neurological Neurological: Denies numbness, Denies weakness - Psychiatric Psychiatric: Denies anxiety, Denies depression - Endocrine Endocrine: Reports weight change, Denies fatigue - Hematologic/Lymphatic Comment: none - Allergic/Immunologic Allergic/Immunologic: Reports as per HPI Past Medical History Past Medical History: Cancer, GERD/Reflux, Hyperlipidemia, Musculoskeletal Disorder, Osteoarthritis (OA) Additional Past Medical History / Comment(s): HX OF BASAL CELL CANCER & LYMPHOMA WITH CHEMO 2009., BACK PAIN. History of Any Multi-Drug Resistant Organisms: None Reported Past Surgical History: Back Surgery, Cholecystectomy, Hysterectomy, Orthopedic Surgery, Tonsillectomy Additional Past Surgical History / Comment(s): 06/15/16 posterior lateral decompression fusion transforaminal lumbar interbody fusion L4-5 and L5-S1. Other surgical hx: TUMOR ON EAR, HEMMORRHOIDECTOMY, PETE CARPAL TUNNEL, Past Anesthesia/Blood Transfusion Reactions: Previous Problems w/ Anesthesia Additional Past Anesthesia/Blood Transfusion Reaction / Comment(s): AFTER HYSTERECTOMY SHE COULN'T BREATHE WHEN SHE WAS WAKING UP AND SHE BECAME VERY ANXIOUS. Past Psychological History: No Psychological Hx Reported Past Alcohol Use History: Rare Past Drug Use History: None Reported - Past Family History Brother(s) Family Medical History: Cancer Additional Family Medical History / Comment(s): PROSTATE CA Sister(s) Family Medical History: Cancer Additional Family Medical History / Comment(s): TWIN SISTER HAD KIDNEY CANCER Medications and Allergies Home Medications Medication Instructions Recorded Confirmed Type Levothyroxine Sodium [Synthroid] 75 mcg PO DAILY 05/16/23 05/16/23 History Losartan Potassium 50 mg PO DAILY 05/16/23 05/16/23 History Meloxicam [Mobic] 15 mg PO DAILY 05/16/23 05/16/23 History Rosuvastatin [Crestor] 20 mg PO DAILY 05/16/23 05/16/23 History Allergies Allergy/AdvReac Type Severity Reaction Status Date / Time Penicillins Allergy Severe Rash/Hives Verified 05/16/23 13:10 , Skin on face peeled iodine Allergy Unknown Rash/Hives Verified 05/16/23 13:10 miconazole Allergy Unknown Blisters Verified 05/16/23 13:10 [From Neosporin AF] shellfish derived [Shellfish] Allergy Unknown Hives , Verified 05/16/23 13:10 Swelling diazepam [From Valium] AdvReac Unknown Chills, Verified 05/16/23 13:10 Shaking Objective - Vital Signs Vital signs: Vital Signs Temp 97.7 F 11/28/24 15:04 Pulse 84 11/28/24 15:04 Resp 17 11/28/24 15:04 BP 144/83 11/28/24 15:04 Pulse Ox 96 11/28/24 15:04 FiO2 Intake & Output 11/27/24 11/28/24 11/28/24 18:59 06:59 18:59 Weight 108.862 kg - Constitutional General appearance: Present: cooperative - EENT Eyes: Present: EOMI ENT: Present: hearing grossly normal - Neck Neck: Present: normal ROM - Respiratory Respiratory: bilateral: CTA - Cardiovascular Rhythm: regular Heart sounds: normal: S1, S2 - Integumentary Integumentary: Present: normal turgor - Musculoskeletal Musculoskeletal: Present: gait normal - Psychiatric Psychiatric: Present: A&O x's 3, appropriate affect, intact judgment & insight - Additional findings Additional findings: Breast Exam: BRA: 42D Inspection: Bilateral grade 3 ptosis Right breast: Multi-positional exam fibrocystic changes no dominant masses or nodules of concern Right axilla: No adenopathy of concern Left breast: Multi-positional exam fibrocystic changes no dominant masses or nodules of concern, post surgical and radiation changes Left axilla: No adenopathy of concern fungal infection under the left breast resolved Assessment and Plan Assessment: Impression: Left breast stage IA invasive ductal carcinoma Fibrocystic breast changes mammogram 05-13-24 BIRAD 2 repeat 1 year completed treatment with physical therapy for lymphedema, which has resolved Plan: follow up in 6 months bilateral mammogram in May 2025 with appointment at that time follow up medical Oncology Follow radiation oncology Follow-up here sooner any questions or concerns CC: DR. Jang
== END ==
LOC: WWCWWP 14:02
PROVIDERS: ATTEND Surgery
DX: Z12.31 Encounter for screening mammogram for malignant neoplasm of breast (principal); N60.19 Diffuse cystic mastopathy of unspecified breast; D05.12 Intraductal carcinoma in situ of left breast; Z91.013 Allergy to seafood; Z88.0 Allergy status to penicillin; Z91.041 Radiographic dye allergy status; Z88.8 Allergy status to other drugs, medicaments and biological substances; Z88.5 Allergy status to narcotic agent

== ENCOUNTER → 2025-02-26 | Outpatient (CLI) | payer MEDICARE, BC ==
--- NOTE | 2025-02-26 20:18 | XR ---
EXAMINATION TYPE: XR knee complete LT DATE OF EXAM: 02/26/2025 4:26 PM COMPARISON: None CLINICAL INDICATION: Female, 64 years old with history of [id number] FALL, LT KNEE PAIN; [facility], curt n TECHNIQUE: 3 views FINDINGS: Extensor mechanism is intact. No acute fracture, subluxation, dislocation is seen. IMPRESSION: No acute osseous abnormality seen. [facility], , 02/26/2025 8:16 PM
== END | disposition home or self-care (01) ==
LOC: RADXRYALE 15:51
PROVIDERS: ATTEND Physician Assistant
DX: M25.562 Pain in left knee (principal); W19.XXXA Unspecified fall, initial encounter